=== PATIENT | female | born 1985 | race Two or more races ===

== ENCOUNTER → 2019-11-25 | Outpatient (CLI) | payer OTHER | END | disposition home or self-care (01) | LOC: PRENATAL 14:00 | DX: O24.410 Gestational diabetes mellitus in pregnancy, diet controlled (principal); O60.02 Preterm labor without delivery, second trimester; O35.3XX0 Maternal care for (suspected) damage to fetus from viral disease in mother, not applicable or unspecified; Z36.89 Encounter for other specified antenatal screening ==

== ENCOUNTER → 2019-12-29 | Outpatient (CLI) | payer OTHER | END | disposition home or self-care (01) | LOC: PRENATAL 09:30 | PROVIDERS: ATTEND Obstetrics & Gynecology Maternal & Fetal Medicine | DX: O26.843 Uterine size-date discrepancy, third trimester (principal); O24.410 Gestational diabetes mellitus in pregnancy, diet controlled; O60.03 Preterm labor without delivery, third trimester; Z36.89 Encounter for other specified antenatal screening ==

== ENCOUNTER → 2020-02-10 | Outpatient (CLI) | payer OTHER ==
[~2020-02-10] MED LIST: ASPIR 8181 MG PO; PRENATAL 19 TA1 EAC1 PO
== END | disposition home or self-care (01) ==
LOC: PRENATAL 13:46
PROVIDERS: ATTEND Obstetrics & Gynecology Maternal & Fetal Medicine
DX: O26.843 Uterine size-date discrepancy, third trimester (principal); O24.410 Gestational diabetes mellitus in pregnancy, diet controlled; O36.8131 Decreased fetal movements, third trimester, fetus 1; Z36.89 Encounter for other specified antenatal screening

== ENCOUNTER 2020-02-24 14:19 | Inpatient (IN) | payer OTHER ==
[~2020-02-24] VITALS: Ht 160 cm; Wt 2.3 kg
[2020-02-24] MEDS ORDERED: PRENATAL 19 TA1 EAC1 PO (14:53)
[2020-02-24] MEDS ORDERED: ASPIR 8181 MG PO (14:54)
== END 2020-02-28 14:36 | disposition home or self-care (01) | DRG 807 ==
LOC: LDR 14:19 → OB/GYN 02-26 19:49
PROVIDERS: ADMIT Obstetrics & Gynecology; ATTEND Obstetrics & Gynecology
PROC: 4A1HXCZ Monitoring of Products of Conception, Cardiac Rate, External Approach (ICD-10-PCS; 2020-02-24)
PROC: BW40ZZZ Ultrasonography of Abdomen (ICD-10-PCS; 2020-02-25)
PROC: 10E0XZZ Delivery of Products of Conception, External Approach (ICD-10-PCS; principal; 2020-02-26)
PROC: 0W8NXZZ Division of Female Perineum, External Approach (ICD-10-PCS; 2020-02-26)
PROC: 3E033VJ Introduction of Other Hormone into Peripheral Vein, Percutaneous Approach (ICD-10-PCS; 2020-02-26)
DX: O60.14X0 Preterm labor third trimester with preterm delivery third trimester, not applicable or unspecified (principal); Z37.0 Single live birth; O24.410 Gestational diabetes mellitus in pregnancy, diet controlled; Z3A.34 34 weeks gestation of pregnancy; Z20.828 Contact with and (suspected) exposure to other viral communicable diseases

== ENCOUNTER 2020-11-01 05:50 | Day surgery (SDC) | payer OTHER ==
[2020-11-01] MEDS ORDERED: NAPROXEN SODIU500 M1 PO (11:14)
[2020-11-01] MEDS ORDERED: CODE1TAB37 PO (11:14)
== END 2020-11-01 14:24 | disposition home or self-care (01) ==
LOC: CIR.AMB 05:50
PROVIDERS: ATTEND Obstetrics & Gynecology
DX: Z30.2 Encounter for sterilization (principal); Z20.822 Contact with and (suspected) exposure to COVID-19